=== PATIENT | female | born 1990 | race African-American/Black ===

== ENCOUNTER 2019-11-19 20:22 | Emergency (ER) | payer OTHER ==
[~2019-11-19] VITALS: Ht 167.6 cm; Wt 63.5 kg
[2019-11-19 21:00] VITALS: BP 115/79
--- NOTE | 2019-11-19 21:00 | NUR ---
ED Nurse Note: Pt walked into ED for c/o laceration to L 5th digit on hand. Pt states she was holding a glass at work and it shattered. Pt is aaox4, no other complaints or acute distress noted.
--- NOTE | 2019-11-19 21:17 | Emergency Room Report ---
History of Present Illness General Chief Complaint: Laceration Source: Patient Present Illness HPI Is a 29-year-old female who is right-hand dominant. 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 She sustained a laceration to her left fifth finger while at work. She was cleaning drinking glass when the stem broke and stabbed her. At work they placed some topical treatment on it to stop the bleeding. She complains of throbbing pain in that area. No active bleeding. Tetanus is within 10 years. Pain is 5 out of 10. Worse with palpation. Denies any other complaint. Allergies: Coded Allergies: No Known Allergies (Unverified , 11/19/19) Patient History Past Medical History: none, see triage record, old chart reviewed Past Surgical History: none Pertinent Family History: none Social History: Denies: smoking Last Menstrual Period: current Immunizations: UTD Reviewed Nursing Documentation: PMH: Agreed; PSxH: Agreed Nursing Documentation-PM Past Medical History: No Stated History Review of Systems Eye: Denies: eye pain, blurred vision ENT: Denies: ear pain, nose congestion, throat swelling Respiratory: Denies: cough, shortness of breath Cardiovascular: Denies: chest pain, palpitations Gastrointestinal: Denies: abdominal pain, diarrhea, nausea, vomiting Musculoskeletal: Denies: back pain, joint pain Skin: Denies: rash Neurological: Denies: headache, numbness Endocrine: Denies: increased thirst, increased urine Hematologic/Lymphatic: Denies: easy bruising All Other Systems: negative except mentioned in HPI Physical Exam Vital Signs Date Time Temp Pulse Resp B/P (MAP) Pulse Ox O2 Delivery O2 Flow Rate FiO2 11/19/19 20:45 97.9 81 18 115/79 (91) 99 Room Air Vitals normal Sp02 EP Interpretation: reviewed, normal General Appearance: well appearing, no apparent distress, alert Head: normocephalic, atraumatic Eyes: bilateral eye PERRL, bilateral eye EOMI ENT: hearing grossly normal, normal pharynx Neck: full range of motion, supple, no meningismus Respiratory: chest non-tender, lungs clear, normal breath sounds Cardiovascular #1: regular rate, rhythm, no murmur Gastrointestinal: normal bowel sounds, non tender, no mass, no organomegaly, no bruit, non-distended Musculoskeletal: back normal, normal range of motion, gait/station normal, other - Left fifth finger: Tip of the finger on the radial aspect there is a 1cm laceration. No active bleeding. Full range of motion of the MCP, PIP, and DIP joint. Capillary refill less than 2 seconds. Psychiatric: mood/affect normal Procedures Laceration/Wound Repair Laceration/Wound Repair : Consent: Verbal Wound Location: upper extremity - left 5th finger Wound's Depth, Shape: irregular, flap Wound Length (cm): 1 Wound Explored: clean Irrigated w/ Saline (ccs): 1000 Anesthesia: 1% Lidocaine Volume Anesthetic (ccs): 1 Wound Repaired With: sutures Suture Size/Type: 6:0, proline Number of Sutures: 4 Patient Tolerated: Well Complications: None Medical Decision Making Diagnostic Impression: Primary Impression: Laceration ER Course This patient presents with a finger laceration. No foreign body or tendon laceration. No nailbed involvement. Last Vital Signs Date Time Temp Pulse Resp B/P (MAP) Pulse Ox O2 Delivery O2 Flow Rate FiO2 11/19/19 20:45 97.9 81 18 115/79 (91) 99 Room Air Status: improved Disposition: HOME, SELF-CARE Condition: Stable Scripts Ibuprofen* (MOTRIN*) 600 Mg Tablet 600 MG ORAL THREE TIMES A DAY, #30 TAB 0 Refills Prov: James Velasquez MD 11/19/19 Patient Instructions: Laceration Care, Adult Additional Instructions: Keep wound clean and dry. Follow-up with Workmen's Comp. doctor in 7 days for suture removal. Return if worse. James Velasquez MD Nov 19, 2019 21:17
--- NOTE | 2019-11-19 21:25 | NUR ---
ED Nurse Note: ERMD bedside for lac repair.
[2019-11-19] MEDS ORDERED: Neosporin Oint Ud Pkt TOPIC ONE (21:45)
[2019-11-19] MEDS ORDERED: IBUPROFEN600 MG ORAL (21:45)
[2019-11-19 22:00] VITALS: BP 115/79
--- NOTE | 2019-11-19 22:00 | NUR ---
ER DISCHARGE NOTE: Patient is cleared to be discharged per ERMD, pt is aox4, on room air, with stable vital signs. pt was given dc and prescription instructions, pt was able to verbalize understanding, pt id band removed. pt is able to ambulate with steady gait. pt took all belongings.
== END 2019-11-19 22:00 | disposition home or self-care (01) ==
LOC: EMR 21:13
DX: S61.217A Laceration without foreign body of left little finger without damage to nail, initial encounter (principal); W25.XXXA Contact with sharp glass, initial encounter; Y92.9 Unspecified place or not applicable; Y99.0 Civilian activity done for income or pay
CPT/HCPCS: 99283